=== PATIENT | female | born 1960 | race Caucasian/White ===

== ENCOUNTER 2017-08-27 14:57 | Outpatient (RCR) | payer BC, OTHER | END 2017-11-25 | disposition home or self-care (01) | LOC: ONC 14:57 | PROVIDERS: ATTEND Radiology Radiation Oncology | DX: C50.411 Malignant neoplasm of upper-outer quadrant of right female breast (principal); Z17.0 Estrogen receptor positive status [ER+] | CPT/HCPCS: 99214 ==

== ENCOUNTER → 2019-10-06 | Outpatient (CLI) | payer BC ==
--- NOTE | 2019-10-06 15:54 | Diagnostic Imaging Report ---
INDICATION: Postmenopausal female. COMPARISON: None. FINDINGS: AP Spine L2-L4: [BMD (g/cm2): 1.349] [T-Score: 1.2] [Z-Score: 1.2] [BMD Previous: NA] [BMD % Change: NA] LT Hip Neck: [BMD (g/cm2): 0.949] [T-Score: -0.6] [Z-Score: -0.2] LT Hip Total: [BMD (g/cm2):1.115] [T-Score:0.9] [Z-Score: 0.9] [BMD Previous: NA] [BMD % Change: NA] RT Hip Neck: [BMD (g/cm2):0.979] [T-Score:-0.4] [Z-Score:0.0] RT Hip Total: [BMD (g/cm2):1.060] [T-score:0.4] [Z-Score:0.5] [BMD Previous:NA] [BMD % Change:NA] *Indicates significant change from prior examination based on 95% confidence level. World Health Organization criteria for BMD interpretation classify patients as Normal (T-score at or above -1.0), Osteopenic (T-score between -1.0 and -2.5) or Osteoporotic (T-score at or below -2.5). LIMITATIONS AND MODIFICATION: Degenerative changes in the lumbar spine may falsely elevate bone density. IMPRESSION: 1. Normal bone mineral density. 2. Baseline examination. 3. See below National Osteoporosis Foundation guidelines on when to potentially initiate pharmacologic therapy. Based on the National Osteoporosis Foundation Guidelines, pharmacologic treatment should be initiated in any of the following, unless clinical conditions suggest otherwise: * Any patient with prior fragility fracture of the hip or vertebrae. A spine fracture indicates 5X risk for subsequent spine fracture and 2X risk for subsequent hip fracture. * Osteoporosis (T-score <-2.5). * Postmenopausal women and men age 50 and older with low bone mass/osteopenia (T-score between -1.0 and -2.5) by DXA and 10-year major osteoporotic fracture greater than 20% or a 10-year probability of hip fracture greater than 3%. These fracture risks are supplied above in the FRAX score, if applicable. * Clinician judgement and/or patient preferences may indicate treatment for people with 10-year fracture probabilities above or below these levels. Dictated by: Dictated on workstation # [id number]
== END ==
LOC: RAD 11:59
PROVIDERS: ATTEND Internal Medicine Hematology & Oncology
DX: C50.411 Malignant neoplasm of upper-outer quadrant of right female breast (principal); Z78.0 Asymptomatic menopausal state
CPT/HCPCS: 77080

== ENCOUNTER → 2021-01-03 | Outpatient (CLI) | payer BC ==
--- NOTE | 2021-01-03 11:08 | Diagnostic Imaging Report ---
INDICATION: Pain status post injury. COMPARISON: None. FINDINGS: 4 views of the right wrist demonstrate no acute fracture or dislocation. There are no focal osseous lesions. No avascular necrosis is seen. The visualized soft tissue structures are unremarkable. The pronator fat pad is not displaced. There are no radio opaque foreign bodies. IMPRESSION: 1. No acute fracture or dislocation in the right wrist. Dictated by: Dictated on workstation # [id number]
== END ==
LOC: RAD FS 10:00
PROVIDERS: ATTEND Nurse Practitioner
DX: M25.531 Pain in right wrist (principal)
CPT/HCPCS: 73110

== ENCOUNTER 2021-06-20 08:58 | Emergency (ER) | payer BC ==
[~2021-06-20] VITALS: Ht 170.1 cm; Wt 137.8 kg
--- OUTSIDE RECORDS SUMMARY | 2021-06-20 09:04 | XMS REPORT | Clinical Summary ---
Author Author [facility] Organization [facility] Address Unknown Phone Unavailable Care Team Providers Care Gaming Department Head Name Role Phone Mariajose Suh MD PCP Unavailable Source Comments Some departments are not documenting in the electronic medical record. If you d o not see the information that you expected, contact Release of Information in [facility] [place] Information Management department at [phone] for further assistan ce in locating additional records.[facility] Allergies Not on File Medications Not on file Active Problems Not on file Social History Date Tobacco Use Types Packs/Day Years Used Never Assessed Sex Assigned at Date Recorded Not on file Last Filed Vital Signs Not on file Plan of Treatment Health Maintenance Due Date Last Done Comments HIV SCREENING 1975 DTAP/TDAP VACCINES (1 - 1978 Tdap) HEPATITIS C SCREENING 1978 PHYSICAL (COMPREHENSIVE) 1978 EXAM CERVICAL CANCER SCREENING 1981 BREAST CANCER SCREENING 2000 COLORECTAL CANCER 2010 SCREENING SHINGLES RECOMBINANT 2010 VACCINE (1 of 2) INFLUENZA VACCINE 06/30/2021 Results Not on filefrom Last 3 Months
[2021-06-20] MEDS ORDERED: KETOROLAC 30 MG/ML VIAL IVP STA (09:24)
[2021-06-20] MEDS ORDERED: NS IV 1000 ML 1,000 ML IV STA (09:24)
--- NOTE | 2021-06-20 09:31 | ED General ---
General Chief Complaint: Respiratory Problems Stated Complaint: SOB; HEADACHE Nursing Triage Note: PATIENT PRESENTS TO THE ED WITH C/O SHORTNESS OF BREATH, DIFFICULTY SWALLOWING, AND HEADACHE. SHE STATES, "I FEEL LIKE I CAN'T CATCH MY BREATH AND AM HAVING TROUBLE SWALLOWING." SHE DENIES THROAT SORENESS, NAUSEA, WEAKNESS, OR FEVER. SHE REPORTS A HEADACHE BUT STATES, "I THINK IT IS DUE TO THE CHANGE IN THE WEATHER AND WORK." Source of Information: Patient History of Present Illness Date Seen by Provider: Jun 20, 2021 Time Seen by Provider: 09:00 Initial Comments 61-year-old female presenting to the emergency department with complaints of difficulty swallowing, generalized headache, feeling short of breath and like she cannot catch her breath. She states that she developed the symptoms overnight. She denies having any nausea, vomiting, diarrhea, change in bowels, pain with urination, calf swelling, pain in her legs, fever, chills, change in vision. She states that she thinks the headache may be due to change in the weather and stress with work. She reports having headaches almost every day. She rates her headache at 8 out of 10 and throat pain at 5 out of 10. She has pain in right chest with taking deep breaths. She feels "shaky" inside her body. She has a history of breast cancer treated 4 years ago with lymph node dissection and lumpectomy x 2. She currently is taking chemotherapy pill for a total of 10 years before she will be through with it but on last check she has been cancer free. She denies history of blood clots, recent surgery, recent trauma. She did have an extended car trip to and from [place] over Labor Day Weekend. Timing/Duration: 4-6 Hours Severity: Moderate Modifying Factors: worse with Other (swallowing makes her throat worse) Associated Systoms: Chest Pain (pain to right side of chest with deep breaths); No Cough, No Diaphoresis, No Fever/Chills; Headaches (almost daily headache); No Loss of Appetite, No Malaise, No Nausea/Vomiting, No Rash, No Seizure; Shortness of Air; No Syncope Allergies and Home Medications Allergies Coded Allergies: No Known Drug Allergies (Unverified , 06/20/21) Patient Home Medication List Home Medication List Reviewed: Yes Review of Systems Review of Systems Constitutional: No chills, No dizziness, No fever EENTM: throat pain, other (feels like she can not swallow); No hoarseness, No epistaxis, No nose congestion Respiratory: No cough, No hemoptysis; short of breath; No stridor, No wheezing Cardiovascular: see HPI; No edema Gastrointestinal: No abdominal pain, No nausea, No vomiting Genitourinary: no symptoms reported Musculoskeletal: no symptoms reported Skin: No rash Psychiatric/Neurological: See HPI; Denies Numbness, Denies Paresthesia, Denies Weakness Hematologic/Lymphatic: Denies Blood Clots Past Iffjkda-[id number]-Irelrq Hx Patient Social History Tobacco Use?: No Use of E-Cig and/or Vaping dev: No Substance use?: No Alcohol Use?: No Pt feels they are or have been: No Past Medical History Surgery/Hospitalization HX: BREAST CANCER, HTN Physical Exam Vital Signs Vital Signs - First Documented 06/20/21 09:11 Temp 36.9 Pulse 90 Resp 18 B/P (MAP) 185/88 (120) Pulse Ox 100 O2 Delivery Room Air Capillary Refill : Less Than 3 Seconds Height, Weight, BMI Height: '" Weight: lbs. oz. kg; 47.00 BMI Method: General Appearance: No Apparent Distress, Obese HEENT: PERRL/EOMI, Pharynx Normal Neck: Full Range of Motion, Normal Inspection, Non Tender, Supple Respiratory: Lungs Clear, Normal Breath Sounds, No Accessory Muscle Use, No Respiratory Distress; No Rales, No Rhonci, No Stridor, No Wheezing; Other (tender to palpation right upper chest wall and breast area that patient reports is chronically tender since lumpectomy surgeries and lymph node dissection.) Cardiovascular: Regular Rate, Rhythm, Normal Peripheral Pulses Gastrointestinal: Normal Bowel Sounds, No Pulsatile Mass, Non Tender, Soft Rectal: Deferred Extremity: Normal Capillary Refill, Normal Inspection, No Calf Tenderness, No Pedal Edema Neurologic/Psychiatric: Alert, Oriented x3, No Motor/Sensory Deficits, Normal Mood/Affect, 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 Norm as Tested Skin: Normal Color, Warm/Dry; No Rash Progress/Results/Core Measures Suspected Sepsis SIRS Temperature: Pulse: 90 Respiratory Rate: 18 Laboratory Tests 06/20/21 09:34: White Blood Count 7.7 Blood Pressure 185 /88 Mean: 120 Laboratory Tests 06/20/21 09:34: Creatinine 0.85, INR Comment 0.9, Platelet Count 247, Total Bilirubin 0.3 Results/Orders Lab Results Laboratory Tests Test 06/20/21 09:34 Range/Units White Blood Count 7.7 4.3-11.0 10^3/uL Red Blood Count 5.43 H 3.80-5.11 10^6/uL Hemoglobin 15.0 11.5-16.0 g/dL Hematocrit 47 35-52 % Mean Corpuscular Volume 87 80-99 fL Mean Corpuscular Hemoglobin 28 25-34 pg Mean Corpuscular Hemoglobin Concent 32 32-36 g/dL Red Cell Distribution Width 14.0 10.0-14.5 % Platelet Count 247 130-400 10^3/uL Mean Platelet Volume 10.9 9.0-12.2 fL Immature Granulocyte % (Auto) 0 % Neutrophils (%) (Auto) 71 42-75 % Lymphocytes (%) (Auto) 20 12-44 % Monocytes (%) (Auto) 7 0-12 % Eosinophils (%) (Auto) 2 0-10 % Basophils (%) (Auto) 1 0-10 % Neutrophils # (Auto) 5.4 1.8-7.8 X 10^3 Lymphocytes # (Auto) 1.5 1.0-4.0 X 10^3 Monocytes # (Auto) 0.5 0.0-1.0 X 10^3 Eosinophils # (Auto) 0.1 0.0-0.3 10^3/uL Basophils # (Auto) 0.0 0.0-0.1 10^3/uL Immature Granulocyte # (Auto) 0.0 0.0-0.1 10^3/uL Prothrombin Time 12.8 12.2-14.7 SEC INR Comment 0.9 0.8-1.4 Activated Partial Thromboplast Time 26 24-35 SEC Sodium Level 139 135-145 MMOL/L Potassium Level 4.5 3.6-5.0 MMOL/L Chloride Level 104 98-107 MMOL/L Carbon Dioxide Level 26 21-32 MMOL/L Anion Gap 9 5-14 MMOL/L Blood Urea Nitrogen 9 7-18 MG/DL Creatinine 0.85 0.60-1.30 MG/DL Estimat Glomerular Filtration Rate 68 BUN/Creatinine Ratio 11 Glucose Level 119 H 70-105 MG/DL Calcium Level 9.3 8.5-10.1 MG/DL Corrected Calcium 9.2 8.5-10.1 MG/DL Total Bilirubin 0.3 0.1-1.0 MG/DL Aspartate Amino Transf (AST/SGOT) 19 5-34 U/L Alanine Aminotransferase (ALT/SGPT) 22 0-55 U/L Alkaline Phosphatase 139 H 40-136 U/L Troponin I < 0.30 <0.30 NG/ML C-Reactive Protein 2.29 H <0.50 MG/DL Pro-B-Type Natriuretic Peptide 106.7 H <75.0 PG/ML Total Protein 7.4 6.4-8.2 GM/DL Albumin 4.1 3.2-4.5 GM/DL Group A Streptococcus Screen NEGATIVE NEGATIVE My Orders Orders - KIANA LENTZ MD Monitor-Rhythm Ecg Trace Only (06/20/21 09:20) Ed Iv/Invasive Line Start (06/20/21 09:20) Cbc With Automated Diff (06/20/21 09:20) Comprehensive Metabolic Panel (06/20/21:20) Crp Fs (06/20/21:20) Troponin I Fs (06/20/21 09:20) Protime With Inr (06/20/21:20) Partial Thromboplastin Time (06/20/21 09:20) Ekg Tracing (06/20/21:20) Rapid Strep A Screen (06/20/21 09:20) Ct Angio Chest W (06/20/21 09:20) Probnp Fs (06/20/21 09:20) Dexamethasone Injection (Decadron Inje (06/20/21 09:24) Ketorolac Injection (Toradol Injection) (06/20/21 09:24) Ns Iv 1000 Ml (Sodium Chloride 0.9%) (06/20/21 09:24) Iohexol Injection (Omnipaque 350 Mg/Ml 1 (06/20/21 11:00) Received Contrast (Hold Metformin- Contr (06/20/21 11:00) Sodium Chloride Flush (Catheter Flush Sy (06/20/21 11:00) Ns (Ivpb) (Sodium Chloride 0.9% Ivpb Bag (06/20/21 11:00) Medications Given in ED Current Medications Medications Dose Ordered Sig/Sarah Route Start Time Stop Time Status Last Admin Dose Admin Iohexol 100 ml ONCE ONCE IV 06/20/21 11:00 06/20/21 11:01 DC 06/20/21 11:18 100 ML Sodium Chloride 10 ml NEEDED PRN IV 06/20/21 11:00 06/20/21 12:21 DC 06/20/21 11:18 10 ML Sodium Chloride 100 ml ONCE ONCE IV 06/20/21 11:00 06/20/21 11:01 DC 06/20/21 11:18 100 ML Vital Signs/I&O 06/20/21 06/20/21 09:11 12:21 Temp 36.9 36.9 Pulse 90 87 Resp 18 18 B/P (MAP) 185/88 (120) 167/85 Pulse Ox 100 100 O2 Delivery Room Air Room Air Capillary Refill : Less Than 3 Seconds Blood Pressure Mean: 120 Progress Note #1: Progress Note No acute significant normality on physical exam. Her oxygen saturations are 100% on room air. She has no wheezing or little breath sounds. Her throat does not appear erythematous or swollen on direct visualization. Will obtain basic labs and test to look for signs of infection, pulmonary embolism, cardiac disease, strep throat. Obtain a CT angiogram of the chest with her history of breast cancer, recent extended car travel over Labor Day weekend and pleuritic chest pain. Decadron for sensation of throat swelling and pain. Toradol for inflammation and pain as well as headache. IV fluids for hydration and to try and help with the headache. Her initial systolic blood pressure is elevated and if that does not trend down she may also need additional medication to try and help with her hypertension. If no other source shows for acceleration of her symptoms then will discuss further with her about possible Covid and influenza testing. Progress Note #2: Progress Note CBC and Coags without acute significant abnormality. Rapid strep negative. ECG without acute ischemic changes. Progress Note #3: Time: 10:57 Progress Note Chemistry panel without acute significant abnormality other than elevated CRP. She has negative troponin but her proBNP is above normal limits at 106.7 when the reference range for her age should be less than 75. She has mild elevation of glucose to 119. Her Alkaline phosphatase is slightly elevated to 139. Awaiting CT angiogram of chest with contrast. . Progress Note #4: Time: 11:[address] angiogram of chest negative for PE, infiltrate or acute process to account for her shortness of breath. She has a small hiatal hernia. Reviewed results with the patient and she states that she does feel better after treatment. Advised that there were no chills life-threatening issues found on testing. She had no PE, pneumonia, strep throat, heart attack, pleural effusion, lung mass. Counseled to try some antihistamines for allergy symptoms and consider checking back with the clinic. If having worsening or new symptoms then she can certainly get rechecked and especially she develops fever or other symptoms consistent with Covid she may need to get a rapid test to return for te sting. She declined having a test sent from today's exam since her other tests are all looking okay. ECG Initial ECG Impression Date: Jun 20, 2021 Initial ECG Impression Time: 09:20 Initial ECG Rate: 82 Initial ECG Rhythm: Normal Sinus Initial ECG Comparisson: No Previous ECG Available Comment Normal sinus rhythm with a heart rate of [address] elevation. MI interval 164 ms. QT interval 411 ms with a QTc interval of 480 ms. No prior tracing available for comparison. Diagnostic Imaging Diagonstic Imaging: CT Plain Films/CT/US/NM/MRI: chest Comments NAME: [facility]RIFFIN [facility] REC#: [id number] PT STATUS: REG ER : 1960 PHYSICIAN: KIANA LENTZ MD ADMIT DATE: 06/20/21/ER FS Draft Date of Exam:06/20/21 CT ANGIO CHEST W PROCEDURE: CT angiography of the chest with contrast. TECHNIQUE: Multiple contiguous axial images were obtained through the chest after uneventful bolus administration of intravenous contrast. 3D reconstructed CTA MIP acquisitions were also performed. Auto Exposure Controls were utilized during the CT exam to meet ALARA standards for radiation dose reduction. INDICATION: Shortness of air, headache, difficulty swallowing. History of breast cancer and lumpectomies. COMPARISON: None. FINDINGS: The pulmonary arteries are diagnostic to the segmental level. No filling defect is seen to indicate a pulmonary embolus. The heart is normal in size. There is no right heart strain. The aorta is normal in caliber. No mediastinal adenopathy is seen. There is a small hiatal hernia. There is no axillary adenopathy. There is no pleural effusion or pneumothorax. Mild dependent atelectasis is seen in the right lung. No masses are seen. Mild fibrotic changes are seen in the right middle lobe. No central endobronchial lesion is seen. Imaged portions of the upper abdomen demonstrate no acute abnormality. There does appear to be some fatty infiltration of the liver. No acute osseous abnormality is seen. There is skin thickening of the right breast, likely from prior radiation therapy. IMPRESSION: 1. No pulmonary embolus or acute pulmonary abnormality seen. 2. Small hiatal hernia. Dictated on workstation # [id number] Dict: 06/20/21 1138 Trans: 06/20/21 1146 [id number] Interpreted by: ESTEFANÍA ZULUAGA MD Electronically signed by: Reviewed: Reviewed by Me Departure Impression Primary Impression: Generalized headache Additional Impressions: Difficulty swallowing Qualified Codes: R13.10 - Dysphagia, unspecified Shortness of breath Disposition: HOME, SELF-CARE Condition: Improved Departure-Patient Inst. Decision time for Depature: 12:13 Referrals: EUGENIO GONZALEZ MD (PCP/Family) Primary Care Physician Patient Instructions: Headache, Adult ED, Shortness of Breath, Adult ED, Sore Throat, Adult ED Add. Discharge Instructions: Stay well hydrated and get plenty of rest. Consider using an antihistamine such as Claritin or Zyrtec for allergies in case that is contributing to shortness of breath and throat issues. Check back with clinic for continued concerns and if having worsening problems could always check again, but everything had looked ok on the tests today with no signs of life threatening concerns All discharge instructions reviewed with patient and/or family. Voiced understanding. Work/School Note: Work Release Form Date Seen in the Emergency Department: Jun 20, 2021 Return to Work: Jun 21, 2021 Restrictions: No Restrictions KIANA LENTZ MD Jun 20, 2021 09:31
[2021-06-20 09:43] LABS: BASOPHILS % (AUTO) 1 % (0-10); EOSINOPHILS % (AUTO) 2 % (0-10); HEMATOCRIT 47 % (35-52); LYMPHOCYTES % (AUTO) 20 % (12-44); MEAN CORPUSCULAR HEMOGLOBIN 28 pg (25-34); MEAN CORPUSCULAR HGB CONC 32 g/dL (32-36); MEAN CORPUSCULAR VOLUME 87 fL (80-99); MEAN PLATELET VOLUME 10.9 fL (9.0-12.2); MONOCYTES % (AUTO) 7 % (0-12); NEUTROPHILS % (AUTO) 71 % (42-75); PLATELET COUNT 247 10^3/uL (130-400); WHITE BLOOD COUNT 7.7 10^3/uL (4.3-11.0)
[2021-06-20 09:44] LABS: EOSINOPHILS # (AUTO) 0.1 10^3/uL (0.0-0.3); LYMPHOCYTES # (AUTO) 1.5 X 10^3 (1.0-4.0); MONOCYTES # (AUTO) 0.5 X 10^3 (0.0-1.0); NEUTROPHILS # (AUTO) 5.4 X 10^3 (1.8-7.8)
[2021-06-20 09:59] LABS: INR 0.9 (0.8-1.4); PROTHROMBIN TIME PATIENT 12.8 SEC (12.2-14.7)
[2021-06-20 10:27] LABS: ALKALINE PHOSPHATASE 139 U/L (40-136); BILIRUBIN,TOTAL 0.3 MG/DL (0.1-1.0); BUN/CREATININE RATIO 11; CALCIUM 9.3 MG/DL (8.5-10.1); CARBON DIOXIDE 26 MMOL/L (21-32); CHLORIDE 104 MMOL/L (98-107); CREATININE SERUM 0.85 MG/DL (0.60-1.30); GFR ESTIMATED 68; GLUCOSE 119 MG/DL (70-105); POTASSIUM 4.5 MMOL/L (3.6-5.0); SODIUM 139 MMOL/L (135-145)
[2021-06-20 10:28] LABS: ALANINE AMINOTRANSFERASE 22 U/L (0-55); ALBUMIN 4.1 GM/DL (3.2-4.5); TOTAL PROTEIN 7.4 GM/DL (6.4-8.2)
[2021-06-20] MEDS ORDERED: HOLD METFORMIN - RECEIVED CONTRAST 20 ML VIAL IV SCH (11:00)
[2021-06-20] MEDS ORDERED: NS 100 ML (IVPB) BAG IV ONE (11:00)
[2021-06-20] MEDS ORDERED: IOHEXOL 350 MG/ML 100 ML (OMNIPAQUE 350) VIAL IV ONE (11:00)
[2021-06-20] MEDS ORDERED: CATHETER FLUSH 10 ML SYR IV PRN (11:00)
--- NOTE | 2021-06-20 11:46 | Diagnostic Imaging Report ---
PROCEDURE: CT angiography of the chest with contrast. TECHNIQUE: Multiple contiguous axial images were obtained through the chest after uneventful bolus administration of intravenous contrast. 3D reconstructed CTA MIP acquisitions were also performed. Auto Exposure Controls were utilized during the CT exam to meet ALARA standards for radiation dose reduction. INDICATION: Shortness of air, headache, difficulty swallowing. History of breast cancer and lumpectomies. COMPARISON: None. FINDINGS: The pulmonary arteries are diagnostic to the segmental level. No filling defect is seen to indicate a pulmonary embolus. The heart is normal in size. There is no right heart strain. The aorta is normal in caliber. No mediastinal adenopathy is seen. There is a small hiatal hernia. There is no axillary adenopathy. There is no pleural effusion or pneumothorax. Mild dependent atelectasis is seen in the right lung. No masses are seen. Mild fibrotic changes are seen in the right middle lobe. No central endobronchial lesion is seen. Imaged portions of the upper abdomen demonstrate no acute abnormality. There does appear to be some fatty infiltration of the liver. No acute osseous abnormality is seen. There is skin thickening of the right breast, likely from prior radiation therapy. IMPRESSION: 1. No pulmonary embolus or acute pulmonary abnormality seen. 2. Small hiatal hernia. Dictated by: Dictated on workstation # [id number]
[2021-06-20 12:21] VITALS: BP 167/85
== END 2021-06-20 12:20 | disposition home or self-care (01) ==
LOC: EDUNIT# 08:58 → ER FS 08:59
DX: R51.9 Headache, unspecified (principal); R13.10 Dysphagia, unspecified; R06.02 Shortness of breath; I10 Essential (primary) hypertension; E66.9 Obesity, unspecified; Z68.42 Body mass index [BMI] 45.0-49.9, adult
CPT/HCPCS: 36415; 71275; 80053; 83880; 84484; 85025; 85610; 85730; 86141; 87430; 93005; 96374; 96375

== ENCOUNTER → 2022-07-19 | Outpatient (CLI) | payer BC ==
[2022-07-19 11:33] LABS: BILIRUBIN,URINE NEGATIVE (NEGATIVE); CLARITY,URINE CLEAR; COLOR,URINE YELLOW; GLUCOSE, URINE (UA) NEGATIVE (NEGATIVE); KETONES,URINE NEGATIVE (NEGATIVE); LEUKOCYTE ESTERASE ,URINE NEGATIVE (NEGATIVE); NITRITE,URINE NEGATIVE (NEGATIVE); PROTEIN,URINE NEGATIVE (NEGATIVE)
[2022-07-19 11:41] LABS: BACTERIA,URINE NEGATIVE /HPF; WBC,URINE RARE /HPF
== END ==
LOC: LABNPT 11:23
PROVIDERS: ATTEND Registered Nurse Emergency
DX: R10.31 Right lower quadrant pain (principal)
CPT/HCPCS: 81000

== ENCOUNTER → 2022-08-01 | Outpatient (CLI) | payer BC ==
[~2022-08-01] MED LIST: CATHETER FLUSH 10 ML SYR IV PRN; HOLD METFORMIN - RECEIVED CONTRAST 20 ML VIAL IV SCH; IOHEXOL 350 MG/ML 100 ML (OMNIPAQUE 350) VIAL IV ONE; NS 100 ML (IVPB) BAG IV ONE
--- NOTE | 2022-08-01 10:12 | Diagnostic Imaging Report ---
PROCEDURE: CT abdomen and pelvis with contrast. TECHNIQUE: Multiple contiguous axial images were obtained through the abdomen and pelvis after administration of intravenous contrast. Auto Exposure Controls were utilized during the CT exam to meet ALARA standards for radiation dose reduction. All CT scans use one or more of the following dose optimizing techniques: automated exposure control, MA and/or KvP adjustment based on patient size and exam type or iterative reconstruction. INDICATION: Abdominal pain. Patient has a history of breast carcinoma. COMPARISON: No prior studies are available for comparison. FINDINGS: The lung bases are clear. The liver demonstrates diffuse low attenuation, consistent with hepatic steatosis. No liver mass is identified. The gallbladder is unremarkable. There is no biliary ductal dilatation. The pancreas and spleen are unremarkable. No adrenal mass is detected. The kidneys are unremarkable. No hydronephrosis is detected. The aorta is nonaneurysmal. The bowel loops are of normal caliber. The appendix is unremarkable. There is no obstruction or inflammatory process detected. No free fluid or fluid collection is seen. The bladder is decompressed. There uterus is surgically absent. No abdominal or pelvic lymphadenopathy is detected. The bony structures are nonacute. IMPRESSION: 1. Hepatic steatosis. 2. No acute abnormality in the abdomen or pelvis is identified. Dictated by: Dictated on workstation # [id number]
== END ==
LOC: RAD FS 08:12
PROVIDERS: ATTEND Registered Nurse Emergency
DX: K76.0 Fatty (change of) liver, not elsewhere classified (principal); Z85.3 Personal history of malignant neoplasm of breast
CPT/HCPCS: 74177

== ENCOUNTER → 2023-04-24 | Outpatient (CLI) | payer BC, OTHER ==
[2023-04-24 15:51] LABS: ABSOLUTE RETIC # 73 10e9/uL (24-90); BASOPHILS % (AUTO) 1 % (0-10); EOSINOPHILS # (AUTO) 0.1 10^3/uL (0.0-0.3); EOSINOPHILS % (AUTO) 2 % (0-10); HEMATOCRIT 50 % (35-52); HEMOGLOBIN 15.6 g/dL (11.5-16.0); LYMPHOCYTES # (AUTO) 1.9 10^3/uL (1.0-4.0); LYMPHOCYTES % (AUTO) 27 % (12-44); MEAN CORPUSCULAR HEMOGLOBIN 28 pg (25-34); MEAN CORPUSCULAR HGB CONC 31 g/dL (32-36); MEAN CORPUSCULAR VOLUME 89 fL (80-99); MEAN PLATELET VOLUME 12.1 fL (9.0-12.2); MONOCYTES # (AUTO) 0.4 10^3/uL (0.0-1.0); MONOCYTES % (AUTO) 6 % (0-12); NEUTROPHILS # (AUTO) 4.5 10^3/uL (1.8-7.8); NEUTROPHILS % (AUTO) 64 % (42-75); PLATELET COUNT 254 10^3/uL (130-400)
[2023-04-24 16:24] LABS: EOSINOPHILS % (MANUAL) 3 %; LYMPHOCYTES % (MANUAL) 28 %; MONOCYTES % (MANUAL) 5 %; NEUTROPHILS % (MANUAL) 64 %; PLATELET ESTIMATE ADEQUATE
[2023-04-24 16:26] LABS: PLATELET CLUMPS RARE
[2023-04-24 16:46] LABS: ANISOCYTOSIS SLIGHT; POIKILOCYTOSIS SLIGHT
== END ==
LOC: LABNPT 15:28
PROVIDERS: ATTEND Family Medicine
DX: R71.8 Other abnormality of red blood cells (principal)
CPT/HCPCS: 85007; 85027; 85045; 85055